=== PATIENT | male | born 1930 | race African-American/Black ===

== ENCOUNTER 2021-01-24 18:04 | Emergency (ER) | payer OTHER ==
[~2021-01-24] VITALS: Ht 154.9 cm; Wt 63.5 kg
[2021-01-24 18:11] VITALS: TEMP 97.7
[2021-01-24 18:30] LABS: PLATELET COUNT 246 K/uL (142-355)
[2021-01-24 19:26] LABS: POTASSIUM 4.6 mmol/L (3.6-5.2); SODIUM 141 mmol/L (136-145)
[2021-01-24 19:35] LABS: PARTIAL THROMBOPLASTIN TIME 24.3 SECONDS (24.5-33.6)
[2021-01-24 20:15] VITALS: BP 136/50
== END 2021-01-24 20:18 | disposition home or self-care (01) ==
LOC: ED 18:04
PROVIDERS: Hospitalist
DX: R42 Dizziness and giddiness (principal); E86.0 Dehydration
CPT/HCPCS: 36415; 80053; 80320; 82550; 83880; 84484; 85027; 85610; 85730; 93005; 96360; 99284

== ENCOUNTER 2021-02-14 12:33 | Emergency (ER) | payer OTHER ==
[~2021-02-14] VITALS: Ht 157.5 cm; Wt 68.0 kg
[2021-02-14 12:45] VITALS: TEMP 97
[2021-02-14 13:30] VITALS: BP 120/54
== END 2021-02-14 13:53 | disposition home or self-care (01) ==
LOC: ED 12:33
DX: S00.86XA Insect bite (nonvenomous) of other part of head, initial encounter (principal); W57.XXXA Bitten or stung by nonvenomous insect and other nonvenomous arthropods, initial encounter; Y92.89 Other specified places as the place of occurrence of the external cause
CPT/HCPCS: 96372; 99283; J1200; J2930

== ENCOUNTER 2021-03-22 13:14 | Emergency (ER) | payer OTHER ==
[~2021-03-22] VITALS: Ht 157.5 cm; Wt 52.2 kg
[2021-03-22 14:01] LABS: PLATELET COUNT 227 K/uL (142-355)
[2021-03-22 14:11] LABS: POTASSIUM 5.3 mmol/L (3.6-5.2); SODIUM 137 mmol/L (136-145)
[2021-03-22 14:56] LABS: PARTIAL THROMBOPLASTIN TIME 23.8 SECONDS (24.5-33.6)
[2021-03-22] MEDS ORDERED: LISITAB PO (15:31)
[2021-03-22] MEDS ORDERED: LIPITOR20 MG PO (15:31)
[2021-03-22 16:00] VITALS: BP 151/55; TEMP 98.1
== END 2021-03-22 16:00 | disposition home or self-care (01) ==
LOC: ED 13:14
PROVIDERS: Emergency Medicine
DX: R53.81 Other malaise (principal); E86.0 Dehydration; Z20.822 Contact with and (suspected) exposure to COVID-19; Z79.899 Other long term (current) drug therapy; Z51.81 Encounter for therapeutic drug level monitoring
CPT/HCPCS: 36415; 80053; 83880; 84484; 85027; 85610; 85730; 87635; 93005; 96365; 99284; U0003

== ENCOUNTER 2021-04-13 19:37 | Emergency (ER) | payer OTHER ==
[~2021-04-13] VITALS: Ht 157.5 cm; Wt 52.2 kg
[~2021-04-13 19:37] MED LIST: LIPITOR20 MG PO; LISITAB PO
[2021-04-13 19:55] VITALS: TEMP 98.5
[2021-04-13 20:23] LABS: PLATELET COUNT 320 K/uL (142-355)
[2021-04-13 23:00] VITALS: BP 149/59
== END 2021-04-13 23:15 | disposition home or self-care (01) ==
LOC: ED 19:37
PROVIDERS: Emergency Medicine Emergency Medical Services
DX: J20.9 Acute bronchitis, unspecified (principal); Z11.52 Encounter for screening for COVID-19
CPT/HCPCS: 36415; 80053; 81000; 83735; 84484; 85027; 85379; 85610; 87502; 87635; 93005; 96360; 96361; 96365; 99284; J0696; U0003

== ENCOUNTER 2021-04-18 03:23 | Emergency (ER) | payer OTHER ==
[~2021-04-18] VITALS: Ht 157.5 cm; Wt 63.5 kg
[2021-04-18 04:18] LABS: PLATELET COUNT 379 K/uL (142-355)
[2021-04-18 04:28] LABS: POTASSIUM 4.7 mmol/L (3.6-5.2)
[2021-04-18 06:20] VITALS: BP 160/65; TEMP 98.8
== END 2021-04-18 06:20 | disposition home or self-care (01) ==
LOC: ED 03:23
PROVIDERS: Emergency Medicine
DX: M10.9 Gout, unspecified (principal)
CPT/HCPCS: 80048; 84550; 85027; 86140; 96360; 96365; 96375; 99284; J0696; J1885; J2930

== ENCOUNTER 2021-08-19 07:57 | Outpatient (CLI) | payer OTHER ==
[2021-08-19 08:31] LABS: PLATELET COUNT 265 K/uL (142-355)
[2021-08-19 08:43] LABS: POTASSIUM 4.8 mmol/L (3.6-5.2)
== END 2021-08-19 19:06 | disposition home or self-care (01) ==
LOC: LABW 07:57
PROVIDERS: ATTEND Family Medicine
DX: R05.9 Cough, unspecified (principal); R23.1 Pallor; M62.81 Muscle weakness (generalized); R42 Dizziness and giddiness; I51.9 Heart disease, unspecified; E55.9 Vitamin D deficiency, unspecified
CPT/HCPCS: 36415; 80053; 80061; 81000; 82306; 84439; 84443; 85027

== ENCOUNTER 2021-09-02 18:43 | Emergency (ER) | payer OTHER ==
[~2021-09-02] VITALS: Ht 157.5 cm; Wt 63.5 kg
[2021-09-02 18:56] LABS: PLATELET COUNT 232 K/uL (142-355)
[2021-09-02 19:05] LABS: POTASSIUM 4.7 mmol/L (3.6-5.2)
[2021-09-02 21:10] VITALS: BP 128/59; TEMP 99.5
== END 2021-09-02 21:15 | disposition home or self-care (01) ==
LOC: ED 18:43
PROVIDERS: Emergency Medicine
DX: M10.9 Gout, unspecified (principal); I10 Essential (primary) hypertension; F03.90 Unspecified dementia, unspecified severity, without behavioral disturbance, psychotic disturbance, mood disturbance, and anxiety
CPT/HCPCS: 80053; 84550; 85027; 93005; 96372; 96374; 99284; J1885; J2920

== ENCOUNTER 2021-12-22 21:13 | Emergency (ER) | payer OTHER ==
[~2021-12-22] VITALS: Ht 157.5 cm; Wt 63.5 kg
[2021-12-22 22:13] LABS: PLATELET COUNT 225 K/uL (142-355)
[2021-12-22 22:19] LABS: POTASSIUM 4.5 mmol/L (3.6-5.2)
[2021-12-23 00:15] VITALS: BP 192/71; TEMP 98.5
== END 2021-12-23 00:15 | disposition home or self-care (01) ==
LOC: ED 21:13
PROVIDERS: Emergency Medicine
DX: M54.59 Other low back pain (principal); K40.90 Unilateral inguinal hernia, without obstruction or gangrene, not specified as recurrent
CPT/HCPCS: 80053; 81002; 85027; 96360; 96372; 96374; 96375; 99284; J1885; J2270; J2360; J2405

== ENCOUNTER 2022-02-22 11:44 | Outpatient (CLI) | payer OTHER | END 2022-02-22 18:51 | disposition home or self-care (01) | LOC: RAD 11:44 | PROVIDERS: ATTEND Family Medicine | DX: M25.562 Pain in left knee (principal); M25.561 Pain in right knee ==

== ENCOUNTER 2022-02-22 19:47 | Emergency (ER) | payer OTHER ==
[~2022-02-22] VITALS: Ht 157.5 cm; Wt 63.5 kg
[2022-02-22 19:47] VITALS: BP 155/67; TEMP 98.5
[2022-02-22 20:24] LABS: PLATELET COUNT 215 K/uL (142-355)
[2022-02-22 20:26] LABS: POTASSIUM 4.2 mmol/L (3.6-5.2)
== END 2022-02-22 21:40 | disposition home or self-care (01) ==
LOC: ED 19:47
PROVIDERS: Emergency Medicine Emergency Medical Services
DX: M54.50 Low back pain, unspecified (principal); M51.36 Other intervertebral disc degeneration, lumbar region
CPT/HCPCS: 36415; 80048; 84484; 85027; 93005; 99283

== ENCOUNTER 2022-09-14 21:50 | Emergency (ER) | payer OTHER ==
[~2022-09-14] VITALS: Ht 157.5 cm; Wt 72.6 kg
[2022-09-14 21:55] VITALS: TEMP 97.9
[2022-09-14 22:51] LABS: PLATELET COUNT 250 K/uL (142-355)
[2022-09-14 22:58] LABS: POTASSIUM 4.4 mmol/L (3.6-5.2)
[2022-09-15 02:00] VITALS: BP 147/84
== END 2022-09-15 02:00 | disposition home or self-care (01) ==
LOC: ED 21:50
PROVIDERS: Emergency Medicine Emergency Medical Services
DX: E86.0 Dehydration (principal); R42 Dizziness and giddiness; W06.XXXA Fall from bed, initial encounter; Y92.89 Other specified places as the place of occurrence of the external cause
CPT/HCPCS: 36415; 80053; 81002; 83735; 84484; 85027; 93005; 96360; 99284